=== PATIENT | male | born 1955 | race African-American/Black ===

== ENCOUNTER 2020-08-09 11:39 | Emergency (ER) | payer OTHER ==
[2020-08-09 11:56] VITALS: BP 138/75; PULSE 67; TEMP 98.9; BMI 29.4
[2020-08-09] MEDS ORDERED: DIPHTH,PERTUSS(ACELL),TET 0.5 ML DISP.SYRIN IM ONE (12:44)
== END 2020-08-09 13:25 | disposition home or self-care (01) ==
LOC: JERFT 11:39
PROC: 3E0234Z Introduction of Serum, Toxoid and Vaccine into Muscle, Percutaneous Approach (ICD-10-PCS; principal; 2020-08-09)
DX: S61.012A Laceration without foreign body of left thumb without damage to nail, initial encounter (principal); W26.0XXA Contact with knife, initial encounter
CPT/HCPCS: 90715; 99282-25